=== PATIENT | female | born 1975 | race Two or more races ===

== ENCOUNTER 2025-04-24 07:42 | Emergency (ER) | payer BC, SELFPAY ==
[2025-04-24 08:04] VITALS: BP 124/87; PULSE 76; RESP 18; TEMP 36.7; O2SAT 99; BMI 33.3
--- NOTE | 2025-04-24 08:20 | XR_ITS ---
Examination: Foot, right, 3 views Technique: AP, oblique, lateral views foot, 3 views Date and time of exam: April 24, 2025 0847 hrs. Indications: Injury to the foot today, foot pain Findings: No acute fracture. No dislocation No foreign body Impression: No acute fracture
--- NOTE | 2025-04-24 08:20 | XR_ITS ---
EXAMINATION: Ankle, right 3 views . Technique: Ankle AP, oblique, lateral 3 views Date and time of exam: April 24, 2025 0847 hrs. Indications: Injury to the ankle today, ankle pain. Findings: Small chip fractures off the fibular tip Bilateral malleolar soft tissue swelling. No ankle dislocation Impression: Small chip fractures off the fibular tip
[2025-04-24] MEDS: IBUPROFEN TAB 400 MG TABLET 800 MG PO (08:28)
--- NOTE | 2025-04-24 08:44 | EDNOTE_ITS ---
<Statement entered by Rohini Donovan MD - 05/04/25 00:57> As co-signing physician, I was present and available for consult prn. I concur with the plan and care as documented by the midlevel provider. ED Fall Injury RME/HPI General Chief Complaint: Fall Stated Complaint: Right ankle pain after fall Time Seen by Provider: 04/24/25 07:45 Arrival date/time: 04/24/25 07:42 This is a 49-year-old female that comes into the emergency room with complaints of pain to right ankle after a fall. Patient states that she fell and twisted her ankle going down some steps. Patient denies any past medical history. Related Data Previous Rx's ?Medication ?Instructions ?Recorded ibuprofen 800 mg tablet 800 mg PO Q6H PRN pain #14 t abs 04/24/25 Allergies Allergy/AdvReac Type Severity Reaction Status Date / Time shellfish derived Allergy Severe RASH,THROAT Verified 04/24/25 07:45 SWELLS,DIFF. BREATHING iodine Allergy Intermediate RASH Verified 04/24/25 07:45 Review of Systems Review of Systems Systems Reviewed: All systems reviewed, normal except as documented Past Medical History Past Medical History Comments PMH COMMENT: Denies ED Exam Narrative Physical exam: VITAL SIGNS: Reviewed. GENERAL APPEARANCE: Alert and interactive, follows commands, no acute distress HEAD AND FACE: Non-traumatic. ENT: PERRL, pink conjunctivitis, eyelid no trauma, Mucous membrane moist. NECK: Supple, nontender, no nuchal rigidity. CHEST: No tenderness, no crepitus, no paradoxical movement, no retractions. LUNGS: breathing even and unlabored HEART: Regular rate, cap refill less than 2 seconds ABDOMEN: Soft, nondistended, no guarding, nontender, no rebound, no masses, NEUROLOGICAL: Gross motor function intact sensory function intact, Appropriate for age. MUSCULOSKELETAL: low back nontender, full range of motion. EXTREMITIES: No redness, no skin breakdown on bilateral foot and leg. Distal neurovascular status intact bilateral foot, mild erythema to lateral right ankle, full rom SKIN: Color pink, dry, no rash, no lacerations, no abrasions Course Quality Measures none Orders Category Date Time Status Crutches .NOW Care 04/24/25 10:47 Completed Splint / Immobilizer STAT Care 04/24/25 10:48 Completed XR ankle comp RT min 3V Stat Exams 04/24/25 08:20 Completed XR foot comp RT min 3V Stat Exams 04/24/25 08:20 Completed Acetaminophen Tab [Tylenol ES Tab] Med 04/24/25 10:48 Discontinued 1,000 mg PO X1 ONE Ibuprofen Tab [Motrin Tab] Med 04/24/25 08:20 Discontinued 800 mg PO X1 ONE Vital Signs Vital signs: Vital Signs Temperature 98.1 F 04/24/25 08:04 Pulse Rate 76 04/24/25 08:04 Respiratory Rate 18 04/24/25 08:04 Blood Pressure 124/87 H 04/24/25 08:04 Pulse Oximetry (%) 99 04/24/25 08:04 Oxygen Delivery Method Room Air 04/24/25 08:04 Fall MDM Narrative MDM Narrative:: ankle Findings: Small chip fractures off the fibular tip Bilateral malleolar soft tissue swelling. No ankle dislocation Impression: Small chip fractures off the fibular tip foot Findings: No acute fracture. No dislocation No foreign body Impression: No acute fracture Spoke to patient at length. Today patient had xray of ankle there was no acute fracture seen. Patient had fibular bone have a chip. Exam appeared unremarkable. I explained to patient at length that if there was continued pain to this area or worsened to come back to ED or see primary provider for more xrays or further testing such as CT scan or MRI. X rays are not perfect and sometimes serial films needed. Patient verbalized understanding. Patient states they will follow up with primary provider in 1-2 days or come back to ED if symptoms change or worsen. Patient was given crutches Patient data External records reviewed:: [facility] previous records Clinical information provided by:: patient Social determinants that could affect healthcare access:: none Patient has the following chronic illnesses:: see hpi How is presenting disease/condition affected by chronic disease/condition?: no chronic disease Evaluation data The following diagnostics were reviewed and interpreted by me:: radiology exam(s) Lab and/or radiology exams considered but not ordered:: none Interpretation Summary: see note Medications / Prescriptions Medications or Prescriptions considered but not ordered:: none Medication administrations:: Medication Administration History Discontinued Medications Acetaminophen (Acetaminophen 500 Mg Tablet) 1,000 mg PO X1 ONE Stop: 04/24/25 10:49 Last Admin: 04/24/25 10:56 Dose: 1,000 mg Documented By: GM Ibuprofen (Ibuprofen Tab 400 Mg Tablet) 800 mg PO X1 ONE Stop: 04/24/25 08:21 Last Admin: 04/24/25 08:28 Dose: 800 mg Documented By: SUSANNE see mar Consultations Consultation(s) initiated? (list below): No Diagnosis Fall Differential Diagnosis: other (ankle contusion, ankle sprain, ankle fracture) Most likely diagnosis given after review of the tests above:: contusion with fibular chip seen in x ray Admission Indicated Admission indicated?: not indicated Admission Request Was there a request for admission?: No Disposition Plan Disposition Plan: Discharge Discharge Attestation Discharge Attestation: The patient and all family members were given an opportunity to ask questions and understood the discharge instructions. Discharge instructions specifically effects, indications for sooner follow up or return to the emergency department, and the expected course of current diagnosis. Patient condition: Stable Discharge Plan Plan Patient Disposition: HOME (Self Care) Patient condition on transfer: Stable Prescriptions/Referrals Prescriptions/Med Rec: New ibuprofen 800 mg tablet 800 mg PO Q6H PRN (Reason: pain) Qty: 14 0RF Referrals: No Primary/Family,Physician [Primary Care Provider] - In 1 week Problem List Clinical Impression: Contusion, Fibular abnormality Patient/Caregiver Discharge Instructions Discharge Activity: activity as tolerated Education Materials: Contusion Bone Tx Additional Instructions: ankle: Findings: Small chip fractures off the fibular tip Bilateral malleolar soft tissue swelling. No ankle dislocation Impression: Small chip fractures off the fibular tip Follow up with primary provider in 1-2 days. Come back to ED if symptoms change or worsen Print Language: Nepali Stand Alone Forms: Faiza Award Info., Work/School Release, Patient Portal Info Letter PA/LEA Supervising Physician JEANCARLOS/LEA Supervising Physician: clif
--- NOTE | 2025-04-24 10:54 | PC.NURSE ---
PT'S R ANKLE QUINTIN WRAPPED AND ANKLE STIRRUP PLACCED WELL FOR JOINT/MUSCLE SUPPORT. PT GIVEN CRUTCHES AND CRUTCHES TRAINING WELL.
[2025-04-24] MEDS: ACETAMINOPHEN 500 MG TABLET 1000 MG PO (10:56)
== END 2025-04-24 11:03 | disposition home or self-care (01) ==
PROVIDERS: Emergency Provider Emergency Medicine
DX: S90.01XA Contusion of right ankle, initial encounter (principal); X50.1XXA Overexertion from prolonged static or awkward postures, initial encounter
CPT/HCPCS: 73610; 73630; 99283; A9270